=== PATIENT | female | born 1965 | race Native Hawaiian/Other Pacific Islander ===

== ENCOUNTER 2018-12-01 05:18 | Emergency (ER) | payer OTHER ==
[~2018-12-01] VITALS: Ht 162.6 cm; Wt 68.9 kg
[2018-12-01 05:30] VITALS: BP 157/106; TEMP 98
== END 2018-12-01 08:55 | disposition home or self-care (01) ==
LOC: ED 05:18
PROC: 0PS6XZZ Reposition Left Scapula, External Approach (ICD-10-PCS; principal; 2018-12-01)
DX: S42.252A Displaced fracture of greater tuberosity of left humerus, initial encounter for closed fracture (principal); W13.8XXA Fall from, out of or through other building or structure, initial encounter; Y93.I9 Activity, other involving external motion; Y92.017 Garden or yard in single-family (private) house as the place of occurrence of the external cause
CPT/HCPCS: 96374; 99285; J1885; J3490